=== PATIENT | female | born 1985 | race Caucasian/White ===

== ENCOUNTER 2021-11-27 14:09 | Emergency (ER) | payer BC ==
[~2021-11-27] VITALS: Ht 157.5 cm; Wt 85.4 kg
[2021-11-27] MEDS ORDERED: IBUPROFEN IB200 MG PO (14:39)
[2021-11-27] MEDS ORDERED: THERAFLU FLU &1 EAC1 PO (14:39)
[2021-11-27] MEDS ORDERED: IBUPROFEN 200 MG TAB PO ONE (14:45)
[2021-11-27] MEDS ORDERED: DEXAMETHASONE SOD PHOS 10 MG/1 ML VIAL IM ONE (14:45)
[2021-11-27] MEDS ORDERED: IBUPROFEN 600 MG TAB ONE (14:53)
[2021-11-27] MEDS ORDERED: DEXAMETHASONE SOD PHOS INJ 4 MG/ML SDV ONE (14:53)
== END 2021-11-27 14:52 | disposition home or self-care (01) ==
LOC: FSED 14:38
DX: U07.1 COVID-19 (principal); R05.9 Cough, unspecified; R51.9 Headache, unspecified; Z71.89 Other specified counseling; F17.210 Nicotine dependence, cigarettes, uncomplicated
CPT/HCPCS: 96372; 99283; J1100 ×2